=== PATIENT | female | born 1960 | race Caucasian/White ===

== ENCOUNTER → 2018-07-14 11:16 | Outpatient (CLI) | payer SELFPAY | PROVIDERS: PCP Family Medicine; Visit Provider Family Medicine | DX: R19.7 Diarrhea, unspecified (principal) ==

== ENCOUNTER → 2018-07-23 13:57 | Outpatient (CLI) | payer SELFPAY ==
[2018-07-23 15:08] LABS: Clostridium Difficile Tox PCR Negative for C. diff
== END ==
PROVIDERS: PCP Family Medicine; Visit Provider Family Medicine
DX: R19.7 Diarrhea, unspecified (principal)
CPT/HCPCS: 87493

== ENCOUNTER → 2018-08-06 14:34 | Outpatient (CLI) | payer SELFPAY ==
[2018-08-06 17:01] LABS: Thyroid Stimulating Hormone 0.23 uIU/mL (0.47-4.68)
== END ==
PROVIDERS: PCP Family Medicine; Visit Provider Registered Nurse
DX: F41.9 Anxiety disorder, unspecified (principal)
CPT/HCPCS: 36415; 84443

== ENCOUNTER 2018-10-28 15:19 | Emergency (ER) | payer SELFPAY ==
[2018-10-28 15:21] VITALS: BP 119/80; PULSE 74; RESP 15; TEMP 36.9; O2SAT 98; BMI 24.7
--- NOTE | 2018-10-28 15:26 | DI.RAD.S_ITS ---
PROCEDURE: XR CHEST 1V INDICATIONS: chest pain TECHNIQUE: One view of the chest was acquired. COMPARISON: None. FINDINGS: Surgical changes and devices: None. Lungs and pleura: Lungs are clear. No pleural effusions or pneumothorax. Mediastinum: Mediastinal contours appear normal. Heart size is normal. Bones and chest wall: No suspicious bony lesions. Overlying soft tissues appear unremarkable. IMPRESSION: Normal for age, source of current chest pain symptoms is not seen. Dictated by: Miguel Arce M.D. on 10/28/2018 at 15:45 Approved by: Miguel Arce M.D. on 10/28/2018 at 16:00
--- NOTE | 2018-10-28 15:50 | ED_ITS ---
HPI - Chest Pain <Ursula Fry DO - Last Filed: 10/31/18 18:34> General Chief Complaint: Chest Pain Stated Complaint: NEEDS TO BE SEEN FOR HEART Time Seen by Provider: 10/28/18 15:34 Source: patient Mode of arrival: ambulatory Limitations: no limitations History of Present Illness HPI narrative: Patient is a 58-year-old female who presents with left-sided chest pain. She says been ongoing for last 2-3 weeks it comes intermittently sharp stabbing on the same place every time it lasts for about 10-15 seconds. It makes her extremely short of breath. She denies any injury. She can't reproduce it with arm movement or deep breathing. She has no chest pain now. It comes both at rest and with exertion. Today was happening multiple times. She was seen evaluated by her PCP who recommended she come to the ED for further evaluation. She has also been experiencing some fatigue. MD complaint: chest pain Duration: now resolved Onset: during rest and during exertion Pain location: left chest Severity: severe Related Data Home Medications Medication Instructions Recorded Confirmed diphenhydramine HCl [Sleep Aid 50 mg PO BEDTIME 10/28/18 10/28/18 (diphenhydramine)] omeprazole 20 - 40 mg PO DAILY PRN 10/28/18 10/28/18 oxycodone-acetaminophen [Percocet] 1 tab PO PRN PRN 10/28/18 10/28/18 trazodone 100 mg PO BEDTIME 10/28/18 10/28/18 Previous Rx's Medication Instructions Recorded cyclobenzaprine 10 mg PO TIDP PRN #60 tab 07/20/17 sumatriptan succinate [Imitrex] 100 mg PO SEE INSTRUCTIONS #9 tab 04/06/18 furosemide 40 mg tablet 40 mg PO DAILY #30 tab 07/29/18 levothyroxine 88 mcg capsule 88 mcg PO DAILY #90 cap 08/08/18 tramadol 50 mg tablet 50 mg PO Q6HP PRN #60 tab 10/22/18 Allergies Allergy/AdvReac Type Severity Reaction Status Date / Time adhesive Allergy Mild ALLERGIC Verified 10/28/18 15:21 TO TAPE Review of Systems <DO Divya Montesinos Last Filed: 10/31/18 18:34> Review of Systems ROS Unobtainable: All systems reviewed & are unremarkable except as noted in HPI and below Constitutional Denies chills, Denies fever(s), Denies lethargy and Denies weakness ENT Ears, Nose, Mouth, and Throat: Denies change in voice, Denies neck pain and Denies sore throat Cardiovascular Reports as per HPI, Denies dyspnea and Denies dyspnea on exertion Respiratory Denies cough, Denies dyspnea, Denies dyspnea on exertion and Denies wheezing Gastrointestinal Gastrointestinal: Denies abdominal pain, Denies change in bowel habits, Denies diarrhea, Denies nausea and Denies vomiting Musculoskeletal Denies neck pain Integumentary/Breasts Denies pruritus, Denies erythema, Denies rash and Denies wounds Neurologic Denies weakness Allergic/Immunologic Denies wheezing PFSH <Ursula Fry DO - Last Filed: 10/31/18 18:34> Surgical History Status post delivery Status post hysterectomy with oophorectomy Status post laparotomy Social History marital status: Smoking Status: Former smoker alcohol intake: never substance use type: does not use Social History marital status: Smoking Status: Former smoker alcohol intake: never substance use type: does not use Exam <Ursula Fry DO - Last Filed: 10/31/18 18:34> Initial Vital Signs Initial Vital Signs: Vital Signs Temperature 98.5 F 10/28/18 15:21 Pulse Rate 74 10/28/18 15:21 Respiratory Rate 15 10/28/18 15:21 Blood Pressure 119/80 10/28/18 15:21 Pulse Oximetry 98 10/28/18 15:21 GENERAL: Well-appearing, well-nourished and in no acute distress. HEENT: Head atraumatic,EOMI, pupils reactive, face symmetric CARDIOVASCULAR: Regular rate and rhythm without murmurs, rubs or gallops. Pain and not reproducible with palpation RESPIRATORY: Breath sounds equal bilaterally, no wheezes rales or rhonchi. ABDOMEN: Soft, nontender. Normoactive bowel sounds all 4 quadrants. No guarding or rebound. EXTREMITIES: Normal range of motion, no clubbing or edema. Neurovascularly intact NEUROLOGICAL: Alert and oriented x4.Normal gait and speech. Cranial nerves II through XII grossly intact. SKIN: Warm, dry, no laceration, no petechiae, no rashes or lesions. <Tucker Fernandez DO - Last Filed: 10/28/18 19:30> Initial Vital Signs Initial Vital Signs: Vital Signs Temperature 98.5 F 10/28/18 15:21 Pulse Rate 74 10/28/18 15:21 Respiratory Rate 15 10/28/18 15:21 Blood Pressure 119/80 10/28/18 15:21 Pulse Oximetry 98 10/28/18 15:21 Scores <Ursula Fry DO - Last Filed: 10/31/18 18:34> HEART Score Heart Score history: Slightly Suspicious Heart Score EKG: Normal Heart Score Age: 45-64 years old Heart Score risk factors: No known risk factors Heart Score troponin: < or = to normal limit Heart Score Total: 1 PERC Score Age greater than or equal to 50 years: Yes Heart rate greater than or equal to 100 bpm: No Room Air O2 Sat less than 95%: No Unilateral leg swelling: No Recent trauma or surgery: No Hemoptysis: No Prior PE or DVT: No Hormone Use: No Total PERC Score: 1 Wells' Criteria for PE Clinical signs and symptoms of PE: Yes PE is #1 Dx or equally likely: No Heart rate > 100: No Immobilization at least 3 days or surg in previous 4 weeks: No History of PE or DVT: No Hemoptysis: No Malignancy w/Treatment within 6 months or palliative: No Wells' PE Score total: 3 Course <Ursula Fry DO - Last Filed: 10/31/18 18:34> Orders Ordered: ED Orders 10/28/18 15:26 XR chest 1V Stat EKG-12 Lead Stat 10/28/18 16:23 B Type Natriuretic Peptide Stat Complete Blood Count AUTO DIFF Stat Comprehensive Metabolic Panel Stat D Dimer Stat Lipase Stat Partial Thromboplastin Time Stat Prothrombin Time INR Stat Troponin & CK Cardiac Panel Stat 10/28/18 18:40 Troponin I Stat Vital Signs - 8 hr 10/28/18 15:21 10/28/18 16:21 10/28/18 17:30 Temperature 98.5 F Pulse Rate 74 74 71 Respiratory Rate 15 12 14 Blood Pressure 119/80 Blood Pressure [Left Arm] 128/77 131/75 Pulse Oximetry 98 100 97 10/28/18 18:00 10/28/18 18:30 Temperature Pulse Rate 70 68 Respiratory Rate 14 14 Blood Pressure Blood Pressure [Left Arm] 130/76 117/75 Pulse Oximetry 96 98 <Tucker Fernandez DO - Last Filed: 10/28/18 19:30> Orders Ordered: ED Orders 10/28/18 15:26 XR chest 1V Stat EKG-12 Lead Stat 10/28/18 16:23 B Type Natriuretic Peptide Stat Complete Blood Count AUTO DIFF Stat Comprehensive Metabolic Panel Stat D Dimer Stat Lipase Stat Partial Thromboplastin Time Stat Prothrombin Time INR Stat Troponin & CK Cardiac Panel Stat 10/28/18 18:40 Troponin I Stat Vital Signs - 8 hr 10/28/18 15:21 10/28/18 16:21 10/28/18 17:30 Temperature 98.5 F Pulse Rate 74 74 71 Respiratory Rate 15 12 14 Blood Pressure 119/80 Blood Pressure [Left Arm] 128/77 131/75 Pulse Oximetry 98 100 97 10/28/18 18:00 10/28/18 18:30 Temperature Pulse Rate 70 68 Respiratory Rate 14 14 Blood Pressure Blood Pressure [Left Arm] 130/76 117/75 Pulse Oximetry 96 98 MDM - Chest Pain <Ursula Fry DO - Last Filed: 10/31/18 18:34> Lab Data Attestation: I reviewed the patient's lab results. Result diagrams: 10/28/18 16:23 10/28/18 16:23 Lab Results 10/28/18 10/28/18 10/28/18 Range/Units 16:23 16:23 16:23 WBC 4.0 L (4.5-11.0) X10^3/uL RBC 4.55 (4.0-5.2) X10^6/uL Hgb 13.9 (12.0-16.0) g/dL Hct 42.0 (36-46) % MCV 92.4 (80-100) fL MCH 30.5 (26-34) PG MCHC 33.0 (30-36) % RDW 12.3 (11.6-14.8) % Plt Count 150 (150-400) X10^3/uL Neut % (Auto) 49.4 L (50-75) % Lymph % (Auto) 37.6 (25-40) % Adams % (Auto) 11.8 (3-14) % Eos % (Auto) 0.9 L (2-4) % Baso % (Auto) 0.3 (0-2) % Neut # (Auto) 2000 (9222-5246) /uL Lymph # (Auto) 1500 (3346-5843) /uL Adams # (Auto) 500 (0-900) /uL Eos # (Auto) 0 (0-450) /uL Baso # (Auto) 0 (0-100) /uL PT 10.9 (10.1-12.7) SECONDS INR 0.9 (0.9-1.3) APTT 29 (26.4-36.2) SECONDS D-Dimer (<230) ng/mL Sodium 140 (137-145) mmol/L Potassium 3.7 (3.4-5.1) mmol/L Chloride 104 (98-107) mmol/L Carbon Dioxide 27 (22-32) mmol/L BUN 13 (7-17) mg/dL Creatinine 0.70 (0.52-1.04) mg/dL Estimated GFR > 60.0 (>60) mL/min BUN/Creatinine Ratio 18.6 (6-22) Glucose 84 (70-100) mg/dL Calcium 9.1 (8.4-10.2) mg/dL Total Bilirubin 0.4 (0.2-1.3) mg/dL AST 27 (14-36) IU/L ALT 20 (9-52) IU/L Alkaline Phosphatase 59 (38-126) U/L Total Creatine Kinase 48 (30-135) U/L CK-MB (CK-2) TNP CK-MB (CK-2) Rel Index TNP Troponin I < 0.012 (0.01-0.034) ng/mL B-Natriuretic Peptide (<100) Total Protein 7.4 (6.3-8.2) g/dL Albumin 4.6 (3.5-5.0) g/dL Globulin 2.8 (1.7-4.1) g/dL Albumin/Globulin Ratio 1.6 (1.0-2.8) Lipase 82 (23-300) U/L 10/28/18 10/28/18 10/28/18 Range/Units 16:23 16:23 18:40 WBC (4.5-11.0) X10^3/uL RBC (4.0-5.2) X10^6/uL Hgb (12.0-16.0) g/dL Hct (36-46) % MCV (80-100) fL MCH (26-34) PG MCHC (30-36) % RDW (11.6-14.8) % Plt Count (150-400) X10^3/uL Neut % (Auto) (50-75) % Lymph % (Auto) (25-40) % Adams % (Auto) (3-14) % Eos % (Auto) (2-4) % Baso % (Auto) (0-2) % Neut # (Auto) (8685-3924) /uL Lymph # (Auto) (3449-0074) /uL Adams # (Auto) (0-900) /uL Eos # (Auto) (0-450) /uL Baso # (Auto) (0-100) /uL PT (10.1-12.7) SECONDS INR (0.9-1.3) APTT (26.4-36.2) SECONDS D-Dimer < 200 (<230) ng/mL Sodium (137-145) mmol/L Potassium (3.4-5.1) mmol/L Chloride (98-107) mmol/L Carbon Dioxide (22-32) mmol/L BUN (7-17) mg/dL Creatinine (0.52-1.04) mg/dL Estimated GFR (>60) mL/min BUN/Creatinine Ratio (6-22) Glucose (70-100) mg/dL Calcium (8.4-10.2) mg/dL Total Bilirubin (0.2-1.3) mg/dL AST (14-36) IU/L ALT (9-52) IU/L Alkaline Phosphatase (38-126) U/L Total Creatine Kinase (30-135) U/L CK-MB (CK-2) CK-MB (CK-2) Rel Index Troponin I < 0.012 (0.01-0.034) ng/mL B-Natriuretic Peptide < 100 (<100) Total Protein (6.3-8.2) g/dL Albumin (3.5-5.0) g/dL Globulin (1.7-4.1) g/dL Albumin/Globulin Ratio (1.0-2.8) Lipase (23-300) U/L Imaging Data Chest x-ray: Radiologist's impression: PROCEDURE: XR CHEST 1V INDICATIONS: chest pain TECHNIQUE: One view of the chest was acquired. COMPARISON: None. FINDINGS: Surgical changes and devices: None. Lungs and pleura: Lungs are clear. No pleural effusions or pneumothorax. Mediastinum: Mediastinal contours appear normal. Heart size is normal. Bones and chest wall: No suspicious bony lesions. Overlying soft tissues appear unremarkable. IMPRESSION: Normal for age, source of current chest pain symptoms is not seen. Dictated by: Miguel Arce M.D. on 10/28/2018 at 15:45 Approved by: Miguel Arce M.D. on 10/28/2018 at 16:00 ECG Data Attestation: I personally reviewed and interpreted this ECG as follows: Prior ECG tracings: available for review Interpretation: Normal sinus rhythm she does have slight inversion in lead 3 only no other congruent leads this was present previously and EKG 2011. No ST elevations. MDM Narrative Medical decision making narrative: I have discussed at length with patient and . She has been having shortness of breath ongoing for months. That is not any worse today she has always does not sound like cardiac pain 10 knee. I discussed with her PCP about outpatient workup with stress test and echocardiogram which she agrees to. Patient is low risk for PE and has a negative D-dimer. At this time she is chest pain free. I have signed the patient out to Dr. Fernandez with anticipation of going home. <Tucker Fernandez, DO - Last Filed: 10/28/18 19:30> Lab Data Attestation: I reviewed the patient's lab results. Lab Results 10/28/18 10/28/18 10/28/18 Range/Units 16:23 16:23 16:23 WBC 4.0 L (4.5-11.0) X10^3/uL RBC 4.55 (4.0-5.2) X10^6/uL Hgb 13.9 (12.0-16.0) g/dL Hct 42.0 (36-46) % MCV 92.4 (80-100) fL MCH 30.5 (26-34) PG MCHC 33.0 (30-36) % RDW 12.3 (11.6-14.8) % Plt Count 150 (150-400) X10^3/uL Neut % (Auto) 49.4 L (50-75) % Lymph % (Auto) 37.6 (25-40) % Adams % (Auto) 11.8 (3-14) % Eos % (Auto) 0.9 L (2-4) % Baso % (Auto) 0.3 (0-2) % Neut # (Auto) 2000 (4148-8143) /uL Lymph # (Auto) 1500 (9212-7113) /uL Adams # (Auto) 500 (0-900) /uL Eos # (Auto) 0 (0-450) /uL Baso # (Auto) 0 (0-100) /uL PT 10.9 (10.1-12.7) SECONDS INR 0.9 (0.9-1.3) APTT 29 (26.4-36.2) SECONDS D-Dimer (<230) ng/mL Sodium 140 (137-145) mmol/L Potassium 3.7 (3.4-5.1) mmol/L Chloride 104 (98-107) mmol/L Carbon Dioxide 27 (22-32) mmol/L BUN 13 (7-17) mg/dL Creatinine 0.70 (0.52-1.04) mg/dL Estimated GFR > 60.0 (>60) mL/min BUN/Creatinine Ratio 18.6 (6-22) Glucose 84 (70-100) mg/dL Calcium 9.1 (8.4-10.2) mg/dL Total Bilirubin 0.4 (0.2-1.3) mg/dL AST 27 (14-36) IU/L ALT 20 (9-52) IU/L Alkaline Phosphatase 59 (38-126) U/L Total Creatine Kinase 48 (30-135) U/L CK-MB (CK-2) TNP CK-MB (CK-2) Rel Index TNP Troponin I < 0.012 (0.01-0.034) ng/mL B-Natriuretic Peptide (<100) Total Protein 7.4 (6.3-8.2) g/dL Albumin 4.6 (3.5-5.0) g/dL Globulin 2.8 (1.7-4.1) g/dL Albumin/Globulin Ratio 1.6 (1.0-2.8) Lipase 82 (23-300) U/L 10/28/18 10/28/18 10/28/18 Range/Units 16:23 16:23 18:40 WBC (4.5-11.0) X10^3/uL RBC (4.0-5.2) X10^6/uL Hgb (12.0-16.0) g/dL Hct (36-46) % MCV (80-100) fL MCH (26-34) PG MCHC (30-36) % RDW (11.6-14.8) % Plt Count (150-400) X10^3/uL Neut % (Auto) (50-75) % Lymph % (Auto) (25-40) % Adams % (Auto) (3-14) % Eos % (Auto) (2-4) % Baso % (Auto) (0-2) % Neut # (Auto) (6018-8473) /uL Lymph # (Auto) (5755-6897) /uL Adams # (Auto) (0-900) /uL Eos # (Auto) (0-450) /uL Baso # (Auto) (0-100) /uL PT (10.1-12.7) SECONDS INR (0.9-1.3) APTT (26.4-36.2) SECONDS D-Dimer < 200 (<230) ng/mL Sodium (137-145) mmol/L Potassium (3.4-5.1) mmol/L Chloride (98-107) mmol/L Carbon Dioxide (22-32) mmol/L BUN (7-17) mg/dL Creatinine (0.52-1.04) mg/dL Estimated GFR (>60) mL/min BUN/Creatinine Ratio (6-22) Glucose (70-100) mg/dL Calcium (8.4-10.2) mg/dL Total Bilirubin (0.2-1.3) mg/dL AST (14-36) IU/L ALT (9-52) IU/L Alkaline Phosphatase (38-126) U/L Total Creatine Kinase (30-135) U/L CK-MB (CK-2) CK-MB (CK-2) Rel Index Troponin I < 0.012 (0.01-0.034) ng/mL B-Natriuretic Peptide < 100 (<100) Total Protein (6.3-8.2) g/dL Albumin (3.5-5.0) g/dL Globulin (1.7-4.1) g/dL Albumin/Globulin Ratio (1.0-2.8) Lipase (23-300) U/L ECG Data Attestation: I personally reviewed and interpreted this ECG as follows: Prior ECG tracings: not available for review Interpretation: Repeat EKG Sinus rhythm Ventricular rate is 69 Normal as needed oval Normal QRS Normal QTC Unchanged from prior EKG MDM Narrative Medical decision making narrative: Received turned over from day provider. I reviewed patient's history and physical. Perform my own history and physical exam. Reviewed patient's labs and EKG. First troponin was negative. Second troponin negative. Repeat EKG unchanged. Had a discussion with the patient regarding her symptoms and also her labs. Plan will be is to have the patient follow up with Dr. Sy for an outpatient stress test. Patient was given return precautions and follow-up instructions. Both her and her expressed understanding agreement this plan. Discharge Plan Departure Patient Disposition: Home Clinical Impression: Atypical chest pain Discharge Date/Time: 10/28/18 19:38 Interventions: ED Discharge Assessment Last Done: 10/28/18 19:37 Instructions: DI for Atypical Chest Pain Activity Restrictions/Additional Instructions: *You have been diagnosed with atypical chest *What to do: At this time he still need further workup of her heart but you do not need to stay in the hospital. Dr. Sy is already aware and has started at the process in order to do so. *Continue to take medications as directed Aspirin 81 mg once daily *Follow up with your primary care provider in 2-3 days *Return to ER if you should have increasing chest pain, shortness of breath, change in pain or breathing or any new, worsening or concerning symptoms Prescriptions: No Action cyclobenzaprine 10 MG tablet 10 mg PO TIDP PRNQty: 60 RF: 0 sumatriptan succinate [Imitrex] 100 mg tablet 100 mg PO SEE INSTRUCTIONS Qty: 9 RF: 5 furosemide 40 mg tablet 40 mg PO DAILY Qty: 30 RF: 0 levothyroxine 88 mcg capsule 88 mcg PO DAILY Qty: 90 RF: 0 tramadol 50 mg tablet 50 mg PO Q6HP PRN (Reason: pain) Qty: 60 RF: 0 diphenhydramine HCl [Sleep Aid (diphenhydramine)] 25 mg Capsule 50 mg PO BEDTIME RF: 0 oxycodone-acetaminophen [Percocet] 5-325 mg tablet 1 tab PO PRN PRN (Reason: Migraine Headache) RF: 0 trazodone 100 mg tablet 100 mg PO BEDTIME RF: 0 omeprazole 20 MG capsule,delayed release(DR/EC) 20 - 40 mg PO DAILY PRN (Reason: Acid Reflux) RF: 0 Referrals: Chris Sy MD [Primary Care Provider] -
[2018-10-28 16:21] VITALS: BP 128/77; PULSE 74; RESP 12; O2SAT 100
[2018-10-28 16:37] LABS: Add Manual Diff / Slide Review NO; Basophils Absolute Auto 0 /uL (0-100); Basophils Percent Auto 0.3 % (0-2); Eosinophils Absolute Auto 0 /uL (0-450); Eosinophils Percent Auto 0.9 % (2-4); Hemoglobin 13.9 g/dL (12.0-16.0); Lymphocytes Absolute Auto 1500 /uL (1100-4500); Lymphocytes Percent Auto 37.6 % (25-40); Mean Corpuscular Hemoglobin 30.5 PG (26-34); Mean Corpuscular Volume 92.4 fL (80-100); Monocytes Absolute Auto 500 /uL (0-900); Monocytes Percent Auto 11.8 % (3-14); Neutrophils Absolute Auto 2000 /uL (1500-7000); Neutrophils Percent Auto 49.4 % (50-75); Platelet Count 150 X10^3/uL (150-400); Red Blood Cell Count 4.55 X10^6/uL (4.0-5.2); Red Cell Distribution Width 12.3 % (11.6-14.8)
[2018-10-28 16:49] LABS: INR 0.9 (0.9-1.3); Prothrombin Time 10.9 SECONDS (10.1-12.7)
[2018-10-28 16:51] LABS: PTT Partial Thromboplastin Tim 29 SECONDS (26.4-36.2)
[2018-10-28 16:53] LABS: Alanine Aminotransferase 20 IU/L (9-52); Albumin 4.6 g/dL (3.5-5.0); Albumin Globulin Ratio 1.6 (1.0-2.8); Alkaline Phosphatase 59 U/L (38-126); Aspartate Aminotransferase 27 IU/L (14-36); BUN Creatinine Ratio 18.6 (6-22); Bilirubin Total 0.4 mg/dL (0.2-1.3); Blood Urea Nitrogen 13 mg/dL (7-17); Calcium 9.1 mg/dL (8.4-10.2); Carbon Dioxide 27 mmol/L (22-32); Chloride 104 mmol/L (98-107); Creatine Kinase 48 U/L (30-135); Estimated Glomerular Filt Rate > 60.0 mL/min (>60); Globulin 2.8 g/dL (1.7-4.1); Glucose 84 mg/dL (70-100); HEMOLYSIS < 15 (0-50); Lipase 82 U/L (23-300); Potassium 3.7 mmol/L (3.4-5.1); Sodium 140 mmol/L (137-145); Total Protein 7.4 g/dL (6.3-8.2)
[2018-10-28 17:04] LABS: Troponin I < 0.012 ng/mL (0.01-0.034)
[2018-10-28 17:30] VITALS: BP 131/75; PULSE 71; RESP 14; O2SAT 97
[2018-10-28 18:00] VITALS: BP 130/76; PULSE 70; RESP 14; O2SAT 96
[2018-10-28 18:02] LABS: D Dimer < 200 ng/mL (<230)
[2018-10-28 18:07] LABS: B Type Natriuretic Peptide < 100 (<100)
[2018-10-28 18:30] VITALS: BP 117/75; PULSE 68; RESP 14; O2SAT 98
[2018-10-28 19:08] LABS: Troponin I < 0.012 ng/mL (0.01-0.034)
== END 2018-10-28 19:38 | disposition home or self-care (01) ==
PROVIDERS: Emergency Medicine; Emergency Provider Emergency Medicine; Family Provider Family Medicine; PCP Family Medicine
DX: R07.89 Other chest pain (principal); R53.83 Other fatigue; R06.02 Shortness of breath
CPT/HCPCS: 36591; 71045; 80053; 82550; 83690; 83880; 84484; 85025; 85379; 85610; 85730; 93005; 93010; 99283; 99285

== ENCOUNTER → 2019-03-02 14:44 | Outpatient (CLI) | payer SELFPAY ==
[2019-03-02 15:27] LABS: D Dimer < 200 ng/mL (<230)
== END ==
PROVIDERS: Family Provider Family Medicine; PCP Family Medicine; Visit Provider Family Medicine
DX: R00.2 Palpitations (principal); R06.02 Shortness of breath
CPT/HCPCS: 36415; 85379

== ENCOUNTER → 2019-03-09 11:01 | Outpatient (CLI) | payer SELFPAY ==
--- NOTE | 2019-03-25 08:23 | PM.CARDMON.1 ---
Medical Record Librarian Report Referral & Results Date Patient Seen: 03/09/19 Requesting provider: Chris Sy Indication: Palpitations Duration of monitoring (days): 4 Diary information: There were 118 patient triggered events and 35 diarrhea events These events were associated with sinus rhythm, supraventricular ectopy, and ventricular ectopy Data: Minimum heart rate identified was 40 beats per minute at 05:19 on 03/11/2019 Maximum heart rate was 104 beats per minute at 11:19 on 03/10/2019 Less than 1% of identified beats or either ventricular supraventricular ectopic in origin There were no pauses identified Impression: A large percent of patients triggered or reported events were associated with sinus rhythm. However some of the triggers and or diarrhea recorded events were associated with either PVCs or PACs No serious dysrhythmia identified however
== END ==
PROVIDERS: PCP Family Medicine; Visit Provider Family Medicine
DX: R00.2 Palpitations (principal)
CPT/HCPCS: 0296T; 0298T

== ENCOUNTER → 2019-03-25 10:02 | Outpatient (CLI) | payer SELFPAY ==
[2019-03-25 16:14] LABS: Free T4, Direct Thyroxine 1.05 ng/dL (0.78-2.19)
== END ==
PROVIDERS: PCP Family Medicine; Visit Provider Family Medicine
DX: E03.9 Hypothyroidism, unspecified (principal)
CPT/HCPCS: 36415; 84439; 84443

== ENCOUNTER → 2019-06-06 11:11 | Outpatient (CLI) | payer SELFPAY ==
[2019-06-06 14:36] LABS: Free T4, Direct Thyroxine 1.91 ng/dL (0.78-2.19)
== END ==
PROVIDERS: PCP Family Medicine; Visit Provider Family Medicine
DX: E03.9 Hypothyroidism, unspecified (principal)
CPT/HCPCS: 36415; 84439; 84443

== ENCOUNTER → 2019-07-20 15:15 | Outpatient (CLI) | payer SELFPAY ==
[2019-07-20 19:08] LABS: Thyroid Stimulating Hormone 0.16 uIU/mL (0.47-4.68)
== END ==
PROVIDERS: Family Provider Family Medicine; PCP Family Medicine; Visit Provider Nurse Practitioner Family
DX: E03.9 Hypothyroidism, unspecified (principal)
CPT/HCPCS: 36415; 84443

== ENCOUNTER → 2019-12-08 10:05 | Outpatient (CLI) | payer SELFPAY ==
[2019-12-08 13:05] LABS: Thyroid Stimulating Hormone 8.88 uIU/mL (0.47-4.68)
== END ==
PROVIDERS: Family Provider Family Medicine; PCP Family Medicine; Referring Provider Family Medicine; Visit Provider Family Medicine
DX: E03.9 Hypothyroidism, unspecified (principal)
CPT/HCPCS: 36415; 84443

== ENCOUNTER → 2020-03-12 10:24 | Outpatient (CLI) | payer SELFPAY ==
[2020-03-12 11:44] LABS: Thyroid Stimulating Hormone 5.58 uIU/mL (0.47-4.68)
== END ==
PROVIDERS: Family Provider Family Medicine; PCP Family Medicine; Referring Provider Family Medicine; Visit Provider Family Medicine
DX: E03.9 Hypothyroidism, unspecified (principal)
CPT/HCPCS: 36415; 84443

== ENCOUNTER → 2020-06-25 13:40 | Outpatient (CLI) | payer SELFPAY ==
--- NOTE | 2020-06-25 | DI.MG.S_ITS ---
BILATERAL DIGITAL DIAGNOSTIC MAMMOGRAM 3D/2D: 06/25/2020 CLINICAL: Left breast pain. Comparison is made to exams dated: 08/20/2012 mammogram and 12/15/2008 mammogram - [facility]. The tissue of both breasts is heterogeneously dense. This may lower the sensitivity of mammography. No significant masses, calcifications, or other findings are seen in either breast. IMPRESSION: INCOMPLETE: NEEDS ADDITIONAL IMAGING EVALUATION There is no abnormality seen in the left breast to correspond with the area of clinical concern, palpable abnormality, and pain indicated by triangular marker in the middle depth in the upper inner quadrant. An ultrasound is recommended for further evaluation and is scheduled to immediately follow this examination. There is no abnormality seen in the left breast to correspond with the area of clinical concern and pain in the mid left breast radiating up to the left axilla . An ultrasound is recommended for further evaluation and is scheduled to immediately follow this examination. This exam was interpreted at Station ID: [id number]. NOTE: For mammograms, a report in lay terms will be sent to the patient. Approximately 15% of breast malignancies will not be visualized mammographically. In the management of a palpable breast mass, a negative mammogram must not discourage biopsy of a clinically suspicious lesion. Electronically Signed By: Janusz Turner M.D. aty/:06/25/2020 14:33:33 ACR BI-RADS Category 0: Incomplete 3340F
--- NOTE | 2020-06-25 13:46 | DI.US.S_ITS ---
ULTRASOUND OF LEFT BREAST: 06/25/2020 CLINICAL: Diffuse left breast pain and palpable lump. Comparison is made to exams dated: 06/25/2020 mammogram, 08/20/2012 mammogram, 08/20/2012, and 12/15/2008 mammogram - [facility]. Color flow and real-time ultrasound of the left breast were performed. Botello scale images of the real-time examination were reviewed. No significant abnormalities were seen sonographically in the left breast or left axilla. IMPRESSION: NEGATIVE There is no sonographic evidence of malignancy. There are no abnormalities seen in the left breast or in the left axilla to correspond with the areas of clinical concern, palpable abnormalities, and pain at 2, 5, 10 o'clock, and in the left axilla, however, recommend clinical follow up for persistent or worsening symptoms, or development of any clinically suspicious findings. A 1 year screening mammogram is recommended. Findings and recommendations were conveyed to the patient during today's evaluation. This exam was interpreted at Station ID: [id number]. Electronically Signed By: Janusz Turner M.D. at/:06/25/2020 16:24:26 letter sent: Clinical Evaluation Ultrasound BI-RADS: 1 Negative
== END ==
PROVIDERS: Family Provider Family Medicine; PCP Family Medicine; Referring Provider Family Medicine; Visit Provider Family Medicine
DX: R92.8 Other abnormal and inconclusive findings on diagnostic imaging of breast (principal); N63.20 Unspecified lump in the left breast, unspecified quadrant; N64.4 Mastodynia
CPT/HCPCS: 76642; 77066; G0279

== ENCOUNTER → 2020-06-28 15:08 | Outpatient (CLI) | payer SELFPAY ==
[2020-06-28 16:47] LABS: Thyroid Stimulating Hormone 0.023 uIU/mL (0.47-4.68)
== END ==
LOC: LAB 15:09
PROVIDERS: Family Provider Family Medicine; PCP Family Medicine; Referring Provider Family Medicine; Visit Provider Family Medicine
DX: E03.9 Hypothyroidism, unspecified (principal)
CPT/HCPCS: 36415; 84443

== ENCOUNTER → 2020-12-17 15:23 | Outpatient (CLI) | payer SELFPAY ==
[2020-12-17 17:00] LABS: Thyroid Stimulating Hormone 0.262 uIU/mL (0.47-4.68)
== END ==
PROVIDERS: Family Provider Family Medicine; PCP Family Medicine; Referring Provider Family Medicine; Visit Provider Family Medicine
DX: E03.9 Hypothyroidism, unspecified (principal)
CPT/HCPCS: 36415; 84443

== ENCOUNTER 2021-09-17 19:05 | Emergency (ER) | payer SELFPAY ==
[2021-09-17 19:09] VITALS: BP 120/76; PULSE 74; RESP 18; TEMP 36.8; O2SAT 97; BMI 25.2
--- NOTE | 2021-09-17 19:26 | DI.CT.S_ITS ---
PROCEDURE: CT ABDOMEN PELVIS W CON INDICATIONS: severe RUQ and lower abdominal pain, sent by Jess TECHNIQUE: After the administration of intravenous contrast, axial sections acquired from the lung bases to the pubic symphysis. Coronal and sagittal reformats were performed. For radiation dose reduction, the following was used: automated exposure control, adjustment of mA and/or kV according to patient size. COMPARISON: [facility], CT, CT ANGIO CHEST ABDOMEN, 03/12/2019, 16:38. FINDINGS: Image quality: Excellent. Lung bases: Unremarkable. Heart: No significant findings. ABDOMEN: Liver: Irregular hypoattenuating lesion at the posterior right hepatic dome with peripheral nodular discontinuous enhancement appears unchanged when compared to the CT from 03/12/2019, again most likely representing a benign hemangioma. No additional liver lesion is seen. Gallbladder: Mildly contracted but otherwise unremarkable. No pericholecystic inflammatory changes. Biliary ducts: Unremarkable. Pancreas: Annular pancreas is noted with mild narrowing at the junction of the 1st and 2nd portions of the duodenum, a congenital variant. Spleen: Unremarkable. Adrenal Glands: Unremarkable. Kidneys and Ureters: Unremarkable. Stomach and Bowel: Stomach is mildly distended. The pylorus area pill is somewhat hypertrophied. There is narrowing of the duodenum at the junction of the 1st and 2nd portion, where there is an annular pancreas noted. Bowel wall thickening is seen in the transverse colon as well as the descending and sigmoid colon that may be related to underdistention, but is suspicious for a mild colitis. Surgical clips at the cecal tip are most likely secondary to a prior appendectomy. Peritoneum: No abnormal intraperitoneal fluid. No free air. Ventral Wall: No hernias. Abdominal Nodes: No retroperitoneal or mesenteric adenopathy by size criteria. Vessels: Aorta and inferior vena cava are normal in size. PELVIS: Pelvic Organs: Suspected prior supracervical hysterectomy. Bladder: Unremarkable. Pelvic Nodes: No enlarged lymph nodes. Miscellaneous: No hernias are seen. Bones: Trace scoliotic curvature is seen in the spine. Mild multilevel degenerative changes. IMPRESSION: 1. Mild bowel wall thickening in the transverse colon as well as in the descending and sigmoid colon could be related to underdistention, but is suspicious for a mild nonspecific colitis. 2. 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 Stomach is mildly distended. No signs of high-grade obstruction. 3. Stable right liver dome hemangioma. Dictated by: Angel Diamond M.D. on 09/17/2021 at 20:22 Approved by: Angel Diamond M.D. on 09/17/2021 at 20:31
[2021-09-17 19:30] LABS: Add Manual Diff / Slide Review NO; Basophils Absolute Auto 0 /uL (0-100); Basophils Percent Auto 0.5 % (0-2); Eosinophils Absolute Auto 100 /uL (0-450); Eosinophils Percent Auto 1.2 % (2-4); Hematocrit 39.3 % (36-46); Lymphocytes Absolute Auto 1900 /uL (1100-4500); Lymphocytes Percent Auto 43.6 % (25-40); Mean Corpuscular HGB Conc 33.1 % (30-36); Mean Corpuscular Hemoglobin 30.5 PG (26-34); Monocytes Absolute Auto 600 /uL (0-900); Monocytes Percent Auto 13.7 % (3-14); Neutrophils Absolute Auto 1800 /uL (1500-7000); Platelet Count 162 X10^3/uL (150-400); Red Blood Cell Count 4.27 X10^6/uL (4.0-5.2); Red Cell Distribution Width 12.3 % (11.6-14.8); White Blood Cell Count 4.4 X10^3/uL (4.5-11.0)
[2021-09-17 19:38] LABS: Prothrombin Time 11.3 SECONDS (10.1-12.7)
[2021-09-17 19:41] LABS: PTT Partial Thromboplastin Tim 34 SECONDS (26.4-36.2)
[2021-09-17 19:48] LABS: Alanine Aminotransferase 15 IU/L (<35); Albumin 4.4 g/dL (3.5-5.0); Albumin Globulin Ratio 1.5 (1.0-2.8); Alkaline Phosphatase 52 U/L (38-126); Aspartate Aminotransferase 28 IU/L (14-36); BUN Creatinine Ratio 18.9 (6-22); Bilirubin Total 0.4 mg/dL (0.2-1.3); Blood Urea Nitrogen 14 mg/dL (7-17); Calcium 9.1 mg/dL (8.4-10.2); Carbon Dioxide 29 mmol/L (22-32); Chloride 104 mmol/L (98-107); Estimated Glomerular Filt Rate > 60.0 mL/min (>60); Globulin 2.9 g/dL (1.7-4.1); Glucose 103 mg/dL (70-100); HEMOLYSIS 17 (0-50); Lipase 120 U/L (23-300); Potassium 3.9 mmol/L (3.4-5.1); Sodium 139 mmol/L (137-145); Total Protein 7.3 g/dL (6.3-8.2)
--- NOTE | 2021-09-17 22:01 | ED_ITS ---
HPI - Abdominal Pain General Chief Complaint: Abdominal Pain Stated Complaint: GALLBLADDER PAIN Time Seen by Provider: 09/17/21 19:21 History of Present Illness HPI narrative: 61-year-old female former smoker with history of IBS, incisional hernias and gallbladder disease presents with her and a chief complaint of ongoing abdominal pain. She states that she has pain in her upper abdomen and right upper quadrant that is consistent with prior gallbladder episodes. She has been referred to [facility] but is yet to have significant findings on imaging or labs to suggest surgeries indicated. She also has some lower abdominal pain that is consistent with prior episodes of incisional hernia. She states that she still having bowel movements, passing gas and has not been vomiting. She has had no fever chills. All of her abdominal pain seems to be worsened by motion and improves with rest. She denies any dietary change, new medications or other. She has been putting contact with surgery as mentioned above, and encouraged to presents to the emergency department for evaluation of her symptoms worsen. Related Data Home Medications Medication Instructions Recorded Confirmed omeprazole 20 mg capsule,delayed 20 - 40 mg PO DAILY PRN 10/28/18 08/29/21 release Previous Rx's Medication Instructions Recorded sumatriptan succinate 100 mg See Rx Instructions .ROUTE 03/12/20 tablet (Imitrex) .COMPLEX #9 tab furosemide 40 mg tablet (Lasix) 40 mg PO DAILY PRN #30 tab 10/10/20 trazodone 100 mg tablet See Rx Instructions .ROUTE 03/28/21 .COMPLEX #30 tab tramadol 50 mg tablet See Rx Instructions .ROUTE 06/10/21 .COMPLEX #60 tab levothyroxine 100 mcg tablet See Rx Instructions .ROUTE 07/10/21 .COMPLEX #90 tablet Allergies Allergy/AdvReac Type Severity Reaction Status Date / Time adhesive Allergy Mild ALLERGIC Verified 08/29/21 14:31 TO TAPE Review of Systems Review of Systems Narrative: GENERAL: Denies chills, fatigue, malaise, fever, sweats. HEENT: Denies sinus pain, ear pain, sore throat, difficulty swallowing, dizziness. RESPIRATORY: Denies dyspnea, cough, wheezing, hemoptysis, sputum. CARDIOVASCULAR: Denies chest pain, palpitations, orthopnea, edema, GASTROINTESTINAL: See HPI : Denies dysuria, frequency, incontinence, hematuria, urinary retention. MUSCULOSKELETAL: denies weakness, joint pain, or bony pain SKIN: Denies rash, skin lesions, or other NEUROLOGIC: Denies weakness, headache, numbness, change in speech, confusion, seizures, incoordination. PSYCHIATRIC: No concerning psychosocial issues. 12 point review of systems is negative except for those stated above Patient History Medical History Chest pain PVC (premature ventricular contraction) Surgical History Status post delivery Status post hysterectomy with oophorectomy Status post laparotomy Social History marital status: Smoking Status: Former smoker alcohol intake: never substance use type: does not use Smoking Status: Former smoker alcohol intake frequency: holidays/special occasions only Substance Use Type: does not use Exam Narrative Exam Narrative: GENERAL: [61] year old patient appears stated age. Well-developed patient, in mild distress. Tearful, clearly upset and uncomfortable HEAD: Atraumatic. Normocephalic. EYES: Pupils equal round and reactive. Extraocular motions intact. No scleral icterus. No injection or drainage. ENT: Nose without bleeding, purulent drainage. Throat without erythema, tonsillar hypertrophy or exudate. Airway patent. NECK: Trachea midline. Non tender CARDIOVASCULAR: Regular rate and rhythm without murmurs, gallops, or rubs. RESPIRATORY: Clear to auscultation. Breath sounds equal bilaterally. No wheezes, rales, or rhonchi. GASTROINTESTINAL: Abdomen soft, mild tenderness throughout, nondistended. Bowel sounds present throughout EXTREMITIES: No edema or joint tenderness. BACK: Nontender without deformity or crepitance. No flank tenderness. NEURO: AOx3. SKIN: No rash or erythema of visible areas Initial Vital Signs Initial Vital Signs: Vital Signs Temperature 98.2 F 09/17/21 19:09 Pulse Rate 74 09/17/21 19:09 Respiratory Rate 18 09/17/21 19:09 Blood Pressure 120/76 09/17/21 19:09 Pulse Oximetry 97 09/17/21 19:09 Course Orders Ordered: ED Orders 09/17/21 19:13 EKG-12 Lead Stat 09/17/21 19:20 Complete Blood Count AUTO DIFF Stat Comprehensive Metabolic Panel Stat Lipase Stat Partial Thromboplastin Time Stat Prothrombin Time INR Stat 09/17/21 19:26 CT abdomen pelvis w con Stat Consultations Consultation #1: Discussed with on-call General surgery (Dr. Mercado) who knows this patient. No further recommendations at this time, classic return precautions Vital Signs Vital signs: Vital Signs - 8 hr 09/17/21 19:09 Temperature 98.2 F Pulse Rate 74 Respiratory Rate 18 Blood Pressure 120/76 Pulse Oximetry 97 MDM - Abdominal Pain Lab Data Result diagrams: 09/17/21 19:20 09/17/21 19:20 Labs: Lab Results 09/17/21 09/17/21 09/17/21 Range/Units 19:20 19:20 19:20 WBC 4.4 L (4.5-11.0) X10^3/uL RBC 4.27 (4.0-5.2) X10^6/uL Hgb 13.0 (12.0-16.0) g/dL Hct 39.3 (36-46) % MCV 92.0 (80-100) fL MCH 30.5 (26-34) PG MCHC 33.1 (30-36) % RDW 12.3 (11.6-14.8) % Plt Count 162 (150-400) X10^3/uL Neut % (Auto) 41.0 L (50-75) % Lymph % (Auto) 43.6 H (25-40) % Ransom % (Auto) 13.7 (3-14) % Eos % (Auto) 1.2 L (2-4) % Baso % (Auto) 0.5 (0-2) % Neut # (Auto) 1800 (3064-5461) /uL Lymph # (Auto) 1900 (9144-0459) /uL Ransom # (Auto) 600 (0-900) /uL Eos # (Auto) 100 (0-450) /uL Baso # (Auto) 0 (0-100) /uL PT 11.3 (10.1-12.7) SECONDS INR 1.0 (0.9-1.3) APTT 34 D (26.4-36.2) SECONDS Sodium 139 (137-145) mmol/L Potassium 3.9 (3.4-5.1) mmol/L Chloride 104 (98-107) mmol/L Carbon Dioxide 29 (22-32) mmol/L BUN 14 (7-17) mg/dL Creatinine 0.74 (0.52-1.04) mg/dL Estimated GFR > 60.0 (>60) mL/min BUN/Creatinine Ratio 18.9 (6-22) Glucose 103 H (70-100) mg/dL Calcium 9.1 (8.4-10.2) mg/dL Total Bilirubin 0.4 (0.2-1.3) mg/dL AST 28 (14-36) IU/L ALT 15 (<35) IU/L Alkaline Phosphatase 52 (38-126) U/L Total Protein 7.3 (6.3-8.2) g/dL Albumin 4.4 (3.5-5.0) g/dL Globulin 2.9 (1.7-4.1) g/dL Albumin/Globulin Ratio 1.5 (1.0-2.8) Lipase 120 (23-300) U/L Imaging Data CT scan - abdomen/pelvis: Radiologist's Impression: Brittni Resendiz??61??F??1960 ? Allergy/Adv: adhesive Close Abdomen/Pelvis CT (Signed) Angel Diamond - 09/17/21 Breast Ultrasound (Signed) Janusz Turner - 06/25/20 Mammogram Diagnostic (Signed) Janusz Turner - 06/25/20 Chest X-Ray (Signed) Miguel Arce - 10/28/18 [place] [address] CT Scan Report Signed Patient: Brittni Resendiz MR#: [id number] : 1960 Acct:[id number] Age/Sex: 61 / F Date of Service: 09/17/21 Loc: ED Accession Number: [id number] ?? Procedure: CT abdomen pelvis w con Ordering Provider: Apolinar Medina D.O. PROCEDURE:? CT ABDOMEN PELVIS W CON ? INDICATIONS:? severe RUQ and lower abdominal pain, sent by Jess ? TECHNIQUE:? After the administration of intravenous contrast, axial sections acquired from the lung bases to the pubic symphysis.? Coronal and sagittal reformats were performed.? For radiation dose reduction, the following was used:? automated exposure control, adjustment of mA and/or kV according to patient size.? ? COMPARISON:? [facility], CT, CT ANGIO CHEST ABDOMEN, 03/12/2019, 16:38. ? FINDINGS:? Image quality:? Excellent.? ? Lung bases:? Unremarkable. Heart:? No significant findings. ? ABDOMEN: Liver:? Irregular hypoattenuating lesion at the posterior right hepatic dome with peripheral nodular discontinuous enhancement appears unchanged when compared to the CT from 03/12/2019, again most likely representing a benign hemangioma.? No additional liver lesion is seen. Gallbladder:? Mildly contracted but otherwise unremarkable.? No pericholecystic inflammatory changes. Biliary ducts:? Unremarkable.? ? Pancreas:? Annular pancreas is noted with mild narrowing at the junction of the 1st and 2nd portions of the duodenum, a congenital variant. Spleen:? Unremarkable.? ? Adrenal Glands:? Unremarkable.? ? Kidneys and Ureters:? Unremarkable.? ? ? Stomach and Bowel:? Stomach is mildly distended.? The pylorus area pill is somewhat hypertrophied.? There is narrowing of the duodenum at the junction of the 1st and 2nd portion, where there is an annular pancreas noted.? Bowel wall thickening is seen in the transverse colon as well as the descending and sigmoid colon that may be related to underdistention, but is suspicious for a mild colitis.? Surgical clips at the cecal tip are most likely secondary to a prior appendectomy. Peritoneum:? No abnormal intraperitoneal fluid.? No free air.? ? Ventral Wall: ? No hernias.? Abdominal Nodes:? No retroperitoneal or mesenteric adenopathy by size criteria.? Vessels:? Aorta and inferior vena cava are normal in size.? ? PELVIS: Pelvic Organs:? Suspected prior supracervical hysterectomy. Bladder:? Unremarkable.? ? Pelvic Nodes: No enlarged lymph nodes.? Miscellaneous: No hernias are seen. ? ? ? Bones:? Trace scoliotic curvature is seen in the spine.? Mild multilevel degenerative changes. ? ? IMPRESSION:? 1. Mild bowel wall thickening in the transverse colon as well as in the descending and sigmoid colon could be related to underdistention, but is suspicious for a mild nonspecific colitis. 2. 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 Stomach is mildly distended.? No signs of high-grade obstruction. 3. Stable right liver dome hemangioma. ? ? Dictated by: Angel Diamond M.D. on 09/17/2021 at 20:22 ? ? Approved by: Angel Diamond M.D. on 09/17/2021 at 20:31 ? [facility] Narrative Medical decision making narrative: Patient with ongoing abdominal pain that has been well evaluated thus far. History, physical exam, labs and imaging are very reassuring. There is no indication of an acute abdomen or need for surgical intervention. Her pain is controlled, she can tolerate orals. She was offered pain medications in the form of hydrocodone or an antispasmodic such as Levsin but she refused, stating she does not want to take medications to cover the problem. She is given extensive return precautions and questions have been answered to her apparent satisfaction Discharge Plan Departure Patient Disposition: Home Clinical Impression: Abdominal pain Instructions: DI for Abdominal Pain-Adult Activity Restrictions/Additional Instructions: *You have been diagnosed with [acute abdominal pain. Your history and physical exam are reassuring, labs and CT would suggest against the need for an emergent surgical intervention. As we discussed, I have discussed with Dr. Mercado, he is aware and recommends clear liquids and follow up as previously discussed *What to do: *Please continue to take your regular medications as directed. [ ] New medication prescriptions sent to your pharmacy: [ ] [ ] New medication written as a paper prescription [x ] No new medications given *Please follow up with your primary care provider in 2-3 days, call for an appointment. Let them know you were seen in the Emergency Department and that we ask that you be seen in follow up. We will electronically transmit a record of today's note if your PCP is in our system *If you do not have a primary care provider please contact the [facility] Resource line at [phone]. They will ask some questions about your medical history and help get you set up with a doctor in the community. *Return to Emergency Department if you should have any new, worsening or concerning symptoms, such as [fever greater than 101 F, shaking chills, w orsening pain, persistent vomiting or other bothersome symptoms] Prescriptions: No Action sumatriptan succinate [Imitrex] 100 mg tablet See Rx Instructions .ROUTE .COMPLEX Qty: 9 5RF Rx Instructions: take one tab for migraine. MR in 2 hours if needed. Max dose 200mg/24 hrs; furosemide [Lasix] 40 mg tablet 40 mg PO DAILY PRN (Reason: edema) Qty: 30 11RF trazodone 100 mg tablet See Rx Instructions .ROUTE .COMPLEX Qty: 30 5RF Dose Instruction: TAKE ONE TABLET BY MOUTH AT BEDTIME Rx Instructions: TAKE ONE TABLET BY MOUTH AT BEDTIME tramadol 50 mg tablet See Rx Instructions .ROUTE .COMPLEX Qty: 60 0RF Dose Instruction: TAKE ONE TABLET BY MOUTH EVERY 6 HOURS NEEDED FOR PAIN Rx Instructions: TAKE ONE TABLET BY MOUTH EVERY 6 HOURS NEEDED FOR PAIN levothyroxine 100 mcg tablet See Rx Instructions .ROUTE .COMPLEX Qty: 90 0RF Dose Instruction: TAKE ONE TABLET BY MOUTH EVERY MORNING Rx Instructions: TAKE ONE TABLET BY MOUTH EVERY MORNING omeprazole 20 MG capsule,delayed release(DR/EC) 20 - 40 mg PO DAILY PRN (Reason: Acid Reflux) 0RF Referrals: Chris Sy MD [Primary Care Provider] -
== END 2021-09-17 22:39 | disposition home or self-care (01) ==
PROVIDERS: Emergency Provider Emergency Medicine; Family Provider Family Medicine; PCP Family Medicine
DX: R10.84 Generalized abdominal pain (principal)
CPT/HCPCS: 74177; 80053; 83690; 85025; 85610; 85730; 93005; 99281; 99284; Q9967

== ENCOUNTER → 2022-02-24 13:47 | Outpatient (CLI) | payer OTHER, SELFPAY ==
--- NOTE | 2022-02-24 13:50 | DI.RAD.S_ITS ---
PROCEDURE: XR RIBS BI MIN 4V W CXR1V INDICATIONS: Rib pain after incident TECHNIQUE: Two views each of the left and right ribs were acquired, along with a single view chest. COMPARISON: [facility], , XR CHEST 1 VIEW, 01/03/2022, 19:15. FINDINGS: Surgical changes and devices: None. Bones and chest wall: No acute displaced rib fracture. No suspicious bony lesions. Overlying soft tissues appear unremarkable. Lungs and pleura: No pleural effusions or pneumothorax. Lungs appear clear. Mediastinum: Mediastinal contours appear normal. Heart size is normal. IMPRESSION: No acute displaced rib fracture. No pleural effusion or pneumothorax. Dictated by: Angel Diamond M.D. on 02/24/2022 at 16:25 Approved by: Angel Diamond M.D. on 02/24/2022 at 16:27
== END ==
PROVIDERS: Family Provider Family Medicine; PCP Family Medicine; Referring Provider Family Medicine; Visit Provider Family Medicine
DX: R07.81 Pleurodynia (principal)
CPT/HCPCS: 71111

== ENCOUNTER → 2022-04-16 11:38 | Outpatient (CLI) | payer OTHER, SELFPAY ==
--- NOTE | 2022-04-16 11:48 | DI.RAD.S_ITS ---
PROCEDURE: XR SHOULDER LT MIN 2V INDICATIONS: Increasing pain left shoulder; hx of fall 30 yrs ago TECHNIQUE: 3 views of the shoulder were acquired. COMPARISON: None. FINDINGS: Bones: No fractures or dislocations. [id number] acromioclavicular joint osteoarthritic changes are seen with joint space narrowing and subchondral sclerosis. No suspicious bony lesions. Visualized ribs appear intact. Soft tissues: No suspicious soft tissue calcifications. IMPRESSION: Mild to moderate acromioclavicular joint osteoarthritis. No fracture or dislocation. No gross soft tissue abnormalities. Dictated by: Hans Palmer M.D. on 04/16/2022 at 13:17 Approved by: Hans Palmer M.D. on 04/16/2022 at 13:17
== END ==
PROVIDERS: Family Provider Family Medicine; PCP Family Medicine; Referring Provider Physician Assistant; Visit Provider Physician Assistant
DX: G89.29 Other chronic pain (principal); M25.512 Pain in left shoulder; Z87.828 Personal history of other (healed) physical injury and trauma; M19.012 Primary osteoarthritis, left shoulder
CPT/HCPCS: 73030

== ENCOUNTER → 2022-08-06 09:54 | Outpatient (CLI) | payer OTHER, SELFPAY ==
[2022-08-06 11:17] LABS: TSH w/ Reflex to FT4 0.57 uIU/mL (0.47-4.68)
== END ==
PROVIDERS: Family Provider Family Medicine; PCP Family Medicine; Referring Provider Family Medicine; Visit Provider Family Medicine
DX: E03.9 Hypothyroidism, unspecified (principal)
CPT/HCPCS: 36415; 84443

== ENCOUNTER → 2022-11-04 12:06 | Outpatient (CLI) | payer SELFPAY ==
--- NOTE | 2022-11-04 12:09 | DI.US.S_ITS ---
ULTRASOUND OF LEFT BREAST: 11/04/2022 CLINICAL: Diffuse left breast pain. Comparison is made to exams dated: 06/25/2020 ultrasound, 11/04/2022 mammogram, 06/25/2020 mammogram, 08/20/2012 mammogram, 08/20/2012, and 12/15/2008 mammogram - . Color flow and real-time ultrasound of the left breast were performed. Botello scale images of the real-time examination were reviewed. There are multiple wider than tall various size masses with indistinct margins in the left axilla which correlate with areas of focal tenderness. These masses are isoechoic with faint surrounding increased echogenicity. IMPRESSION: PROBABLY BENIGN The multiple wider than tall various size masses resemble fat necrosis or possible inflammed lipomas and are probably benign. There are no abnormalities seen in the left breast to correspond with the area of clinical concern and palpable nodularities, however, clinical followup is recommended. A follow-up left mammogram and left ultrasound in 6 months is recommended to demonstrate stability. Findings and recommendations were conveyed to the patient during today's evaluation. This exam was interpreted at Station ID: [id number]. Electronically Signed By: Janusz Turner M.D. aty/:11/04/2022 14:09:48 letter sent: Followup Recommended Ultrasound BI-RADS: 3 Probably benign
--- NOTE | 2022-11-04 12:09 | DI.MG.S_ITS ---
BILATERAL DIGITAL DIAGNOSTIC MAMMOGRAM 3D/2D: 11/04/2022 CLINICAL: Pain/ swelling/fullness in the Left breast. Comparison is made to exams dated: 06/25/2020 mammogram, 08/20/2012 mammogram, and 12/15/2008 mammogram - [facility]. Both breasts are heterogeneously dense, which may obscure small masses (category c / 51-75% glandular tissue). No significant masses, calcifications, or other findings are seen in either breast. IMPRESSION: INCOMPLETE: NEEDS ADDITIONAL IMAGING EVALUATION There is no abnormality seen in the left breast to correspond with the area of clinical concern and pain in the upper outer quadrant, however, an ultrasound is recommended for further evaluation and is scheduled to immediately follow this examination. Based on the Tyrer Cuzick model (a risk assessment model) the patient's lifetime risk is 6.7% and her 10 year risk is 2.7%. According to the ACR, ACS, and NCCN guidelines, an annual breast MRI exam along with mammogram is recommended if the patient's lifetime risk is 20% or greater. This exam was interpreted at Station ID: [id number]. NOTE: For mammograms, a report in lay terms will be sent to the patient. Approximately 15% of breast malignancies will not be visualized mammographically. In the management of a palpable breast mass, a negative mammogram must not discourage biopsy of a clinically suspicious lesion. Electronically Signed By: Janusz Turner M.D. aty/:11/04/2022 12:46:01 ACR BI-RADS Category 0: Incomplete 3340F
== END ==
PROVIDERS: Family Provider Family Medicine; PCP Family Medicine; Referring Provider Physician Assistant; Visit Provider Physician Assistant
DX: N64.4 Mastodynia (principal); R92.2 Inconclusive mammogram; N63.20 Unspecified lump in the left breast, unspecified quadrant
CPT/HCPCS: 76642; 77066; G0279

== ENCOUNTER → 2023-07-28 10:02 | Outpatient (CLI) | payer OTHER, SELFPAY ==
[2023-07-28 10:32] LABS: Add Manual Diff / Slide Review NO; Basophils Absolute Auto 0 /uL (0-100); Basophils Percent Auto 0.3 % (0-2); Eosinophils Absolute Auto 100 /uL (0-450); Eosinophils Percent Auto 1.6 % (2-4); Hematocrit 43.2 % (36-46); Hemoglobin 14.3 g/dL (12.0-16.0); Lymphocytes Absolute Auto 1600 /uL (1100-4500); Lymphocytes Percent Auto 38.2 % (25-40); Mean Corpuscular HGB Conc 33.2 % (30-36); Mean Corpuscular Hemoglobin 30.3 PG (26-34); Mean Corpuscular Volume 91.3 fL (80-100); Monocytes Absolute Auto 500 /uL (0-900); Monocytes Percent Auto 12.9 % (3-14); Neutrophils Absolute Auto 2000 /uL (1500-7000); Platelet Count 168 X10^3/uL (150-400); Red Blood Cell Count 4.73 X10^6/uL (4.0-5.2); Red Cell Distribution Width 12.1 % (11.6-14.8); White Blood Cell Count 4.2 X10^3/uL (4.5-11.0)
[2023-07-28 10:50] LABS: Alanine Aminotransferase 19 IU/L (<35); Albumin 4.3 g/dL (3.5-5.0); Albumin Globulin Ratio 1.4 (1.0-2.8); Alkaline Phosphatase 56 U/L (38-126); Aspartate Aminotransferase 27 IU/L (14-36); Bilirubin Total 0.8 mg/dL (0.2-1.3); Blood Urea Nitrogen 15 mg/dL (7-17); Calcium 9.8 mg/dL (8.4-10.2); Carbon Dioxide 30 mmol/L (22-32); Chloride 101 mmol/L (98-107); Cholesterol 220 mg/dL (140-199); Estimated Glomerular Filt Rate > 60 mL/min (>60); Globulin 3.1 g/dL (1.7-4.1); Glucose 99 mg/dL (80-110); HDL Cholesterol 58 mg/dL (40-60); HEMOLYSIS < 15 (0-50); LDL Cholesterol Calculated 146 mg/dL (<100); Potassium 4.1 mmol/L (3.4-5.1); Sodium 137 mmol/L (137-145); Total Protein 7.4 g/dL (6.3-8.2); Triglycerides 81 mg/dL (35-150)
[2023-07-28 11:23] LABS: TSH w/ Reflex to FT4 0.82 uIU/mL (0.47-4.68)
[2023-07-28 11:38] LABS: Vitamin B12 288 pg/mL (239-931)
== END ==
PROVIDERS: Family Provider Family Medicine; PCP Family Medicine; Referring Provider Physician Assistant; Visit Provider Physician Assistant
DX: E03.9 Hypothyroidism, unspecified (principal); G25.81 Restless legs syndrome; R53.83 Other fatigue; I49.9 Cardiac arrhythmia, unspecified; Z13.220 Encounter for screening for lipoid disorders; Z13.6 Encounter for screening for cardiovascular disorders
CPT/HCPCS: 36415; 80053; 80061; 82607; 84443; 85025

== ENCOUNTER → 2023-08-07 11:47 | Outpatient (CLI) | payer OTHER, SELFPAY ==
--- NOTE | 2023-08-07 11:49 | DI.US.S_ITS ---
ULTRASOUND OF LEFT BREAST: 08/07/2023 CLINICAL: Diffuse left breast pain. F/u axillary nodes. Comparison is made to exams dated: 08/07/2023 mammogram, 11/04/2022 ultrasound, 11/04/2022 mammogram, 06/25/2020 ultrasound, and 06/25/2020 mammogram - [facility]. Color flow and real-time ultrasound of the left breast were performed. Botello scale images of the real-time examination were reviewed. Redemonstration of previously described multiple wider than tall various size masses with indistinct margins in the left axilla correlating with previous area of focal tenderness. These masses are isoechoic. These abnormalities are not significantly changed. IMPRESSION: PROBABLY BENIGN The multiple wider than tall various size masses resemble fat necrosis or lipomas and are probably benign. A follow-up bilateral mammogram and a left ultrasound in 12 months is recommended to document mcc stability. Findings and recommendations were conveyed to the patient during today's evaluation. This exam was interpreted at Station ID: [id number]. Electronically Signed By: Janusz Turner M.D. at/:08/07/2023 14:23:46 letter sent: Followup Recommended Ultrasound BI-RADS: 3 Probably benign
--- NOTE | 2023-08-07 11:49 | DI.MG.S_ITS ---
BILATERAL DIGITAL DIAGNOSTIC MAMMOGRAM 3D/2D: 08/07/2023 CLINICAL: Short term follow up of the left breast, due for bilateral imaging. Comparison is made to exams dated: 11/04/2022 ultrasound, 11/04/2022 mammogram, 06/25/2020 ultrasound, and 06/25/2020 mammogram - [facility]. Both breasts are heterogeneously dense, which may obscure small masses (category c / 51-75% glandular tissue). No significant masses, calcifications, or other findings are seen in either breast. IMPRESSION: INCOMPLETE: NEEDS ADDITIONAL IMAGING EVALUATION There is no abnormality seen in the left breast or in the left axilla to correspond with the area of clinical concern and palpable concern evaluated on the prior examination. There was a lipoma versus fat necrosis seen on the previous study near the left axilla. An ultrasound is recommended for further evaluation and is scheduled to immediately follow this examination. Based on the Tyrer Cuzick model (a risk assessment model) the patient's lifetime risk is 6.6% and her 10 year risk is 2.7%. According to the ACR, ACS, and NCCN guidelines, an annual breast MRI exam along with mammogram is recommended if the patient's lifetime risk is 20% or greater. This exam was interpreted at Station ID: [id number]. NOTE: For mammograms, a report in lay terms will be sent to the patient. Approximately 15% of breast malignancies will not be visualized mammographically. In the management of a palpable breast mass, a negative mammogram must not discourage biopsy of a clinically suspicious lesion. Electronically Signed By: Janusz Turner M.D. aty/:08/07/2023 13:55:16 ACR BI-RADS Category 0: Incomplete 3340F
== END ==
PROVIDERS: Family Provider Family Medicine; PCP Family Medicine; Referring Provider Physician Assistant; Visit Provider Physician Assistant
DX: R92.8 Other abnormal and inconclusive findings on diagnostic imaging of breast (principal); N63.32 Unspecified lump in axillary tail of the left breast; N64.4 Mastodynia; R92.333 Mammographic heterogeneous density, bilateral breasts
CPT/HCPCS: 76642; 77066; G0279

== ENCOUNTER → 2023-10-19 08:06 | Outpatient (CLI) | payer OTHER, SELFPAY ==
--- NOTE | 2023-10-19 08:08 | DI.RAD.S_ITS ---
PROCEDURE: XR CERVICAL SPINE 4V OR 5V INDICATIONS: neck pain TECHNIQUE: 6 views of the cervical spine acquired. COMPARISON: [facility], RG, CT CERVICAL SPINE, 04/02/2023, 20:07. FINDINGS: Bones: No fractures or dislocations to the T1 level. Loss of normal cervical spine lordosis. Multilevel disc space height loss. Small osteophytes. Oblique images demonstrate no bony foraminal stenoses. Soft tissues: No prevertebral soft tissue swelling. IMPRESSION: [id number] degenerative change in the cervical spine. Dictated by: Felipe Virgen M.D. on 10/19/2023 at 9:56 Approved by: Felipe Virgen M.D. on 10/19/2023 at 9:58
== END ==
PROVIDERS: Family Provider Family Medicine; PCP Family Medicine; Referring Provider Anesthesiology; Visit Provider Anesthesiology
DX: M47.812 Spondylosis without myelopathy or radiculopathy, cervical region (principal); M54.2 Cervicalgia
CPT/HCPCS: 72050

== ENCOUNTER 2023-10-21 16:14 | Emergency (ER) | payer OTHER, SELFPAY ==
[2023-10-21 16:18] VITALS: BP 135/79; PULSE 81; RESP 18; TEMP 36.7; O2SAT 99; BMI 25.6
--- NOTE | 2023-10-21 17:24 | ED_ITS ---
HPI - Fall <Tori Wild PA-C - Last Filed: 10/21/23 19:41> General Chief Complaint: Fall Stated Complaint: lt rib pain s/p fall Time Seen by Provider: 10/21/23 17:22 Source: patient Mode of arrival: Ambulatory History of Present Illness HPI Narrative: 63-year-old female who is not on blood thinners presents with concern for left- sided rib pain and left knee pain after she fell today in the afternoon. Kat ent states that she and family are cleaning out her mother's house who unexpectedly last week, she was carrying a dish and walking when she stepped over a board and as she did so lost her balance and fell. She states that her arm was up in the air on the left and she landed with all of the brunt of her weight on her left ribs on her side. Somehow she also injured her left knee at the same time although she is unsure if she twisted it or hit it on the ground. She states she felt and heard a popping sensation associated with pain in her left ribs and it was only later that she realized her knee was painful. She says she has been able to breathe just fine but does have some increased pain on her left side with rotation forward movement or sometimes with deep breaths. She has been walking okay on her left knee but states it is a little painful and a little swollen. She denies hitting her head, loss of consciousness neck pain, numbness or tingling of extremities or any other symptoms or concerns. Related Data Home Medications Medication Instructions Recorded Confirmed topiramate 50 mg tablet 50 mg PO BEDTIME 10/19/23 10/19/23 Previous Rx's Medication Instructions Recorded furosemide 40 mg tablet See Rx Instructions .Route 05/29/22 .COMPLEX #30 tabs levothyroxine 100 mcg tablet 100 mcg PO DAILY #90 tabs 08/10/23 tramadol 50 mg tablet See Rx Instructions .Route 08/25/23 .COMPLEX #60 tabs trazodone 100 mg tablet See Rx Instructions .Route 09/14/23 .COMPLEX #30 tabs lidocaine 5 % topical ointment 1 applic topical TID PRN pain #50 10/21/23 grams Allergies Allergy/AdvReac Type Severity Reaction Status Date / Time adhesive Allergy Mild ALLERGIC Verified 10/19/23 08:44 TO TAPE pramipexole AdvReac Intermediate Diarrhea,vomiting, Verified 10/19/23 08:44 diaphoresis Gabapentin AdvReac Intermediate Didn't Uncoded 10/19/23 08:44 feel good Review of Systems <Tori Wild PA-C - Last Filed: 10/21/23 19:41> Review of Systems Narrative: See HPI Patient History <Tori Wild PA-C - Last Filed: 10/21/23 19:41> Medical History Family history of Parkinson's disease Myofascial pain Lumbar spondylosis Cervical spondylosis Chronic neck pain PVC (premature ventricular contraction) Chest pain Surgical History Status post laparotomy Status post delivery Status post hysterectomy with oophorectomy Social History marital status: Smoking Status: Former smoker alcohol intake: never substance use type: does not use Smoking Status: Former smoker alcohol intake frequency: holidays/special occasions only Substance Use Type: does not use Exam <Tori Wild PA-C - Last Filed: 10/21/23 19:41> Narrative Exam Narrative: GENERAL: [63] year old patient appears stated age. Well-developed patient, in mild distress. HEAD: Atraumatic. Normocephalic. EYES: Pupils equal round and reactive. Extraocular motions intact. No scleral icterus. No injection or drainage. ENT: Nose without bleeding, purulent drainage. Airway patent. NECK: Trachea midline. Non tender CARDIOVASCULAR: Regular rate and rhythm without murmurs, gallops, or rubs. RESPIRATORY: Clear to auscultation. Breath sounds equal bilaterally. No wheezes, rales, or rhonchi. GASTROINTESTINAL: Abdomen soft, non-tender, nondistended. EXTREMITIES: The left knee is very slightly swollen as compared to the right, patient has tenderness that is mild at the medial joint line, she also has tenderness at the superior lateral aspect of the patella over the distal quadriceps/quadriceps tendon. Negative posterior drawer and anterior drawer. Range of motion is intact and with minimal pain. Patient ambulates without limp. No other edema or joint tenderness. BACK/thorax: There is no midline spinous process tenderness deformity or step- off. Patient has tenderness with palpation over the ribs and intercostal at proximally T 7-10 level located laterally at the mid axillary line and just anterior to this. Patient also has some muscle tightness and tenderness over the rhomboids and paraspinal muscles of the left spine of the thorax. There is no bruising noted. There is no abdominal tenderness--sternum is nontender with palpation. Otherwise Nontender without deformity or crepitance. No flank tenderness. NEURO: AOx3. SKIN: No rash or erythema of visible areas Initial Vital Signs Initial Vital Signs: Vital Signs Temperature 98.1 F 10/21/23 16:18 Pulse Rate 81 10/21/23 16:18 Respiratory Rate 18 10/21/23 16:18 Blood Pressure 135/79 10/21/23 16:18 Pulse Oximetry 99 10/21/23 16:18 Oxygen Delivery Method Room Air 10/21/23 16:18 <Cris Fitch MD - Last Filed: 10/23/23 20:35> Initial Vital Signs Initial Vital Signs: Vital Signs Temperature 98.1 F 10/21/23 16:18 Pulse Rate 81 10/21/23 16:18 Respiratory Rate 18 10/21/23 16:18 Blood Pressure 135/79 10/21/23 16:18 Pulse Oximetry 99 10/21/23 16:18 Oxygen Delivery Method Room Air 10/21/23 16:18 Course <Tori Wild PA-C - Last Filed: 10/21/23 19:41> Orders Ordered: ED Orders 10/21/23 17:23 XR knee LT 3V Stat XR ribs LT min 3V w CXR1V Stat Vital Signs Vital signs: Vital Signs - 8 hr 10/21/23 16:18 10/21/23 18:55 Temperature 98.1 F Pulse Rate 81 68 Respiratory Rate 18 18 Blood Pressure 135/79 115/68 Pulse Oximetry 99 100 Oxygen Delivery Method Room Air Room Air <Cris Fitch MD - Last Filed: 10/23/23 20:35> Orders Ordered: ED Orders 10/21/23 17:23 XR knee LT 3V Stat XR ribs LT min 3V w CXR1V Stat Vital Signs Vital signs: Vital Signs - 8 hr 10/21/23 16:18 10/21/23 18:55 Temperature 98.1 F Pulse Rate 81 68 Respiratory Rate 18 18 Blood Pressure 135/79 115/68 Pulse Oximetry 99 100 Oxygen Delivery Method Room Air Room Air MDM - Fall <Tori Wild PA-C - Last Filed: 10/21/23 19:41> Differential Diagnosis Differential diagnosis: Likely other (Sprain/strain knee left, intercostal muscle strain, rib fracture) Medical Records Attestation: I reviewed the patient's medical records. Imaging Data Extremity x-ray #1: My Impression: Agree with Radiology interpretation Radiologist's Impression: [address] [address] XRay Report Signed Patient: Brittni Resendiz MR#: [id number] : 1960 Acct:[id number] Age/Sex: 63 / F Date of Service: 10/21/23 Loc: ED Accession Number: [id number] Procedure: XR knee LT 3V Ordering Provider: Tori Wild P.A-C PROCEDURE: XR KNEE LT 3V INDICATIONS: fall, L knee pain TECHNIQUE: 3 views of the knee were acquired. COMPARISON: None. FINDINGS: Bones: No fractures or dislocations. No suspicious bony lesions. Mild to moderate tricompartmental arthritic change. Soft tissues: Mild joint effusion. No suspicious soft tissue calcifications. IMPRESSION: No visualized acute fracture or dislocation. However, if clinical concern and/or pain persist, short interval imaging followup in 7-10 days is recommended, as occult injury cannot be definitively excluded. Dictated by: Carolina Hobbs M.D. on 10/21/2023 at 17:55 Approved by: Carolina Hobbs M.D. on 10/21/2023 at 17:55 rib series/CXR: My Impression: Agree with Radiology interpretation Radiologist's Impression: [address] [address] XRay Report Signed Patient: Brittni Resendiz MR#: [id number] : 1960 Acct:[id number] Age/Sex: 63 / F Date of Service: 10/21/23 Loc: ED Accession Number: [id number] Procedure: XR ribs LT min 3V w CXR1V Ordering Provider: Tori Wild P.A-C PROCEDURE: XR RIBS LT MIN 3V W CXR1V INDICATIONS: fall, L rib pain TECHNIQUE: 3 views of the ribs were acquired, along with a single view chest. COMPARISON: None. FINDINGS: Surgical changes and devices: None. Bones and chest wall: No fractures or dislocations. No suspicious bony lesions. Overlying soft tissues appear unremarkable. Lungs and pleura: No pleural effusions or pneumothorax. Lungs appear clear. Mediastinum: Mediastinal contours appear normal. Heart size is normal. IMPRESSION: No visualized acute fracture or dislocation. However, if clinical concern and/or pain persist, short interval imaging followup in 7-10 days is recommended, as occult injury cannot be definitively excluded. Dictated by: Carolina Hobbs M.D. on 10/21/2023 at 17:54 Approved by: Carolina Hobbs M.D. on 10/21/2023 at 17:55 [facility] Narrative Medical decision making narrative: 63-year-old female with chronic low back pain presents with concern for a fall today without head injury or LOC affecting her left side and left knee. Imaging obtained does not show evidence of pneumothorax or rib fracture although certainly subtle rib fracture can not be ruled out with same-day x-rays. X-ray of the knee does show a small joint effusion. Knee exam is consistent with a strain, possibly sprain discussed options with the patient and feel crutches will be difficult for her given her left side/rib pain from her fall today, she is advised to use an Hasmukh wrap for compression and tried to keep her left knee/leg elevated as much as possible and stay off of it as much as possible for at least the next 2-3 days and then progressively increase activity as tolerat ed. Patient declines muscle relaxer as she states she has this at home, prescription today for topical lidocaine for rib/side pain. Based on her vitals, exam and history I have low suspicion for internal bleeding or organ damage and advanced imaging and labs are not obtained today. Patient will take OTC NSAIDs as needed for pain in addition to lidocaine. Follow up with Orthopedics if she has not improving otherwise see her PCP. Return precautions provided, follow-up plan discussed, all questions answered. Discharge Plan Departure Patient Disposition: Home Clinical Impression: Intercostal muscle strain Qualifiers: Encounter type: initial encounter Qualified Code(s): S29.011A - Strain of muscle and tendon of front wall of thorax, initial encounter Fall Qualifiers: Encounter type: initial encounter Qualified Code(s): W19.XXXA - Unspecified fall, initial encounter Strain of left knee Qualifiers: Encounter type: initial encounter Qualified Code(s): S86.912A - Strain of unspecified muscle(s) and tendon(s) at lower leg level, left leg, initial encounter Activity Restrictions/Additional Instructions: *You have been diagnosed with [left knee strain, intercostal muscle strain] *What to do: *Please continue to take your regular medications as directed. [ 1] New medication prescriptions sent to your pharmacy: [Lidocaine topical] [ ] New medication written as a paper prescription [ ] No new medications given *Please follow up with your primary care provider in 2-3 days, call for an appointment. Let them know you were seen in the Emergency Department and that we ask that you be seen in follow up. We will electronically transmit a record of today's note if your PCP is in our system. We x-rayed your chest and x-rays specific to look at your ribs on the left side. We do not see evidence of a fracture although as we discussed occasionally a rib fracture can not be seen on an initial x-ray after a fall if it is a very subtle rib fracture. Certainly it is possible your symptoms are entirely due to muscle strain from the muscles in between your ribs and possibly of your upper abdominal wall. I encourage you to stay on top of NSAIDs I understand that you do not like to take acetaminophen/Tylenol that is okay, but do stay on top of medications to help with pain and inflammation to ensure that your taking good deep breaths as UR at somewhat increased risk of developing a pneumonia if you are not taking deep breaths because you are having pain on her side. Regarding your knee your x-ray did show a small fluid effusion which is not uncommon when you have knee trauma/injury. Given your left-sided rib pain I think crutches are not a great solution for you right now and you have been able to walk okay on your left leg, I would recommend that you use the Hasmukh wrap we supplied today to provide some compression and as a gentle reminder to not bend your knee too much or walk on it too much. Try to stay off of it for the next few days as much as possible and elevate your leg when your at rest. If you have worsening pain or new symptoms or develop shortness of breath or other symptoms of concern please make sure you seek re-evaluation. You can follow up with your primary care provider, or you may want to consider seeing orthopedics if you feel like you are having persistent knee pain. I prescribed lidocaine for you, it sounds like you have muscle relaxers at home and declined a prescription for these. *If you do not have a primary care provider please contact the [facility] Resource line at [phone]. They will ask some questions about your medical history and help get you set up with a doctor in the community. *Return to Emergency Department if you should have any new, worsening or concerning symptoms, such as [fever greater than 101 F, shaking chills, worsening pain, persistent vomiting or other bothersome symptoms] Prescriptions: New lidocaine 5 % ointment 1 applic topical TID PRN (Reason: pain) Qty: 50 1RF No Action furosemide 40 mg tablet See Rx Instructions .ROUTE .COMPLEX Qty: 30 0RF Dose Instruction: TAKE ONE TABLET BY MOUTH DAILY NEEDED FOR EDEMA Rx Instructions: TAKE ONE TABLET BY MOUTH DAILY NEEDED FOR EDEMA levothyroxine 100 mcg tablet 100 mcg PO DAILY Qty: 90 3RF tramadol 50 mg tablet See Rx Instructions .ROUTE .COMPLEX Qty: 60 0RF Dose Instruction: TAKE ONE TABLET BY MOUTH EVERY 6 HOURS NEEDED FOR PAIN Rx Instructions: TAKE ONE TABLET BY MOUTH EVERY 6 HOURS NEEDED FOR PAIN trazodone 100 mg tablet See Rx Instructions .ROUTE .COMPLEX Qty: 30 5RF Dose Instruction: TAKE ONE TABLET BY MOUTH AT BEDTIME Rx Instructions: TAKE ONE TABLET BY MOUTH AT BEDTIME topiramate 50 mg tablet 50 mg PO BEDTIME Referrals: Chris Sy MD [Primary Care Provider] - Stand Alone Forms: Patient Portal/API ED Sign-out <Cris Fitch MD - Last Filed: 10/23/23 20:35> Cosign ED Attending Cosignature Attestation: I did not see this patient. I was available all times for consultation.
[2023-10-21 18:55] VITALS: BP 115/68; PULSE 68; RESP 18; O2SAT 100
== END 2023-10-21 19:01 | disposition home or self-care (01) ==
PROVIDERS: Emergency Provider Student in an Organized Health Care Education/Training Program; Family Provider Family Medicine; PCP Family Medicine
DX: S29.011A Strain of muscle and tendon of front wall of thorax, initial encounter (principal); S86.912A Strain of unspecified muscle(s) and tendon(s) at lower leg level, left leg, initial encounter; W18.30XA Fall on same level, unspecified, initial encounter
CPT/HCPCS: 71101; 73562; 99281; 99283

== ENCOUNTER → 2024-06-13 10:36 | Outpatient (CLI) | payer OTHER, SELFPAY ==
[2024-06-13 11:23] LABS: Add Manual Diff / Slide Review NO; Basophils Absolute Auto 0 /uL (0-100); Basophils Percent Auto 0.7 % (0-2); Eosinophils Absolute Auto 100 /uL (0-450); Hematocrit 42.8 % (36-46); Hemoglobin 14.1 g/dL (12.0-16.0); Lymphocytes Absolute Auto 1700 /uL (1100-4500); Lymphocytes Percent Auto 43.7 % (25-40); Mean Corpuscular Hemoglobin 30.5 PG (26-34); Mean Corpuscular Volume 92.5 fL (80-100); Monocytes Absolute Auto 500 /uL (0-900); Monocytes Percent Auto 14.2 % (3-14); Neutrophils Absolute Auto 1500 /uL (1500-7000); Neutrophils Percent Auto 39.4 % (50-75); Platelet Count 162 X10^3/uL (150-400); Red Blood Cell Count 4.63 X10^6/uL (4.0-5.2); Red Cell Distribution Width 13.2 % (11.6-14.8); White Blood Cell Count 3.8 X10^3/uL (4.5-11.0)
[2024-06-13 11:49] LABS: Alanine Aminotransferase 18 IU/L (<35); Albumin 4.1 g/dL (3.5-5.0); Albumin Globulin Ratio 1.6 (1.0-2.8); Alkaline Phosphatase 56 U/L (38-126); Aspartate Aminotransferase 30 IU/L (14-36); BUN Creatinine Ratio 13.8 (6-22); Bilirubin Total 0.7 mg/dL (0.2-1.3); Blood Urea Nitrogen 12 mg/dL (7-17); Calcium 9.6 mg/dL (8.4-10.2); Carbon Dioxide 28 mmol/L (22-32); Chloride 102 mmol/L (98-107); Estimated Glomerular Filt Rate > 60 mL/min (>60); Globulin 2.5 g/dL (1.7-4.1); Glucose 83 mg/dL (80-110); HEMOLYSIS < 15 (0-50); Potassium 3.9 mmol/L (3.4-5.1); Sodium 135 mmol/L (137-145); Total Protein 6.6 g/dL (6.3-8.2)
[2024-06-13 12:20] LABS: TSH w/ Reflex to FT4 0.39 uIU/mL (0.47-4.68)
[2024-06-13 12:39] LABS: Vitamin B12 414 pg/mL (239-931)
== END ==
PROVIDERS: Family Provider Family Medicine; PCP Family Medicine; Referring Provider Physician Assistant; Visit Provider Physician Assistant
DX: E03.9 Hypothyroidism, unspecified (principal); R53.83 Other fatigue; E53.8 Deficiency of other specified B group vitamins
CPT/HCPCS: 36415; 80053; 82607; 84439; 84443; 85025

== ENCOUNTER → 2024-08-24 07:34 | Outpatient (CLI) | payer OTHER, SELFPAY ==
--- NOTE | 2024-08-24 | DI.US.S_ITS ---
ULTRASOUND OF LEFT AXILLA: 08/24/2024 CLINICAL: 12 mo f/u axillary masses. Comparison exams: Left breast ultrasound 08/07/2023, 11/04/2022 Color flow and real-time ultrasound of the left axilla were performed. Botello scale images of the real-time examination were reviewed. There is redemonstration of multiple isoechoic areas in the left axilla which corresponds to area of prior clinical tenderness. These findings have not significantly changed since prior ultrasound 11/04/2022. IMPRESSION: BENIGN Left axillary isoechoic areas corresponding to prior area of clinical concern which may represent lipomas are stable since October 2022. Given these findings have demonstrated near 2 year stability, it is consistent with a benign process. No mammographic or sonographic evidence of malignancy. A 1 year screening mammogram is recommended. Clinical follow-up is also recommended, and further management of palpable abnormalities or other focal signs or symptoms should be based on the results of clinical evaluation. If palpable abnormality or other concerning symptom persists or progresses, further clinical evaluation should be considered. Findings and recommendations were conveyed to the patient during today's evaluation. This exam was interpreted at Station ID: [id number]. Electronically Signed By: Bri Gonzalez M.D., Ph.D. eb/:08/25/2024 11:56:53 letter sent: Normal Exam ACR BI-RADS Category 2: Benign
--- NOTE | 2024-08-24 07:35 | DI.MG.S_ITS ---
BILATERAL DIGITAL DIAGNOSTIC MAMMOGRAM 3D/2D: 08/24/2024 CLINICAL: Short term follow up of the left breast, due for bilateral imaging. Comparison is made to exams dated: 08/07/2023 mammogram, 11/04/2022 mammogram, and 06/25/2020 mammogram - [facility]. The breasts are heterogeneously dense, which may obscure small masses (category c / 51-75% glandular tissue). No significant masses, calcifications, or other findings are seen in either breast. IMPRESSION: INCOMPLETE: NEED ADDITIONAL IMAGING EVALUATION There is no mammographic abnormality seen in the left axilla to correspond with the area of clinical concern. An ultrasound is recommended for further evaluation and is scheduled to immediately follow this examination. Based on the Tyrer Cuzick model (a risk assessment model) the patient's lifetime risk is 6.4% and her 10 year risk is 2.7%. According to the ACR, ACS, and NCCN guidelines, an annual breast MRI exam along with mammogram is recommended if the patient's lifetime risk is 20% or greater. This exam was interpreted at Station ID: [id number]. NOTE: For mammograms, a report in lay terms will be sent to the patient. Approximately 15% of breast malignancies will not be visualized mammographically. In the management of a palpable breast mass, a negative mammogram must not discourage biopsy of a clinically suspicious lesion. Electronically Signed By: Bri Gonzalez M.D., Ph.D. eb/:08/24/2024 08:50:58 letter sent: Additional Imaging Needed ACR BI-RADS Category 0: Incomplete: Need Additional Imaging Evaluation
== END ==
PROVIDERS: Family Provider Family Medicine; PCP Family Medicine; Referring Provider Physician Assistant; Visit Provider Physician Assistant
DX: R92.8 Other abnormal and inconclusive findings on diagnostic imaging of breast (principal); R92.333 Mammographic heterogeneous density, bilateral breasts
CPT/HCPCS: 76882; 77066; G0279

== ENCOUNTER → 2024-10-20 11:43 | Outpatient (CLI) | payer OTHER, SELFPAY ==
[2024-10-20 13:08] LABS: Add Manual Diff / Slide Review NO; Basophils Absolute Auto 0 /uL (0-100); Basophils Percent Auto 0.6 % (0-2); Eosinophils Absolute Auto 0 /uL (0-450); Eosinophils Percent Auto 0.8 % (2-4); Hematocrit 40.2 % (36-46); Hemoglobin 13.5 g/dL (12.0-16.0); Lymphocytes Absolute Auto 1400 /uL (1100-4500); Lymphocytes Percent Auto 37.3 % (25-40); Mean Corpuscular HGB Conc 33.7 % (30-36); Mean Corpuscular Hemoglobin 31.3 PG (26-34); Mean Corpuscular Volume 92.8 fL (80-100); Monocytes Absolute Auto 500 /uL (0-900); Monocytes Percent Auto 12.6 % (3-14); Neutrophils Absolute Auto 1800 /uL (1500-7000); Neutrophils Percent Auto 48.7 % (50-75); Platelet Count 159 X10^3/uL (150-400); Red Blood Cell Count 4.33 X10^6/uL (4.0-5.2); Red Cell Distribution Width 13.2 % (11.6-14.8); White Blood Cell Count 3.7 X10^3/uL (4.5-11.0)
[2024-10-20 13:32] LABS: Alanine Aminotransferase 18 IU/L (<35); Albumin 4.3 g/dL (3.5-5.0); Albumin Globulin Ratio 1.8 (1.0-2.8); Alkaline Phosphatase 53 U/L (38-126); Amylase 72 U/L (30-110); Aspartate Aminotransferase 28 IU/L (14-36); BUN Creatinine Ratio 17.7 (6-22); Bilirubin Total 0.7 mg/dL (0.2-1.3); Blood Urea Nitrogen 14 mg/dL (7-17); Calcium 9.9 mg/dL (8.4-10.2); Carbon Dioxide 26 mmol/L (22-32); Chloride 103 mmol/L (98-107); Estimated Glomerular Filt Rate > 60 mL/min (>60); Globulin 2.4 g/dL (1.7-4.1); Glucose 105 mg/dL (80-110); HEMOLYSIS < 15 (0-50); Lipase 135 U/L (23-300); Sodium 137 mmol/L (137-145); Total Protein 6.7 g/dL (6.3-8.2)
== END ==
PROVIDERS: Family Provider Family Medicine; PCP Family Medicine; Referring Provider Physician Assistant; Visit Provider Physician Assistant
DX: R10.10 Upper abdominal pain, unspecified (principal); Q45.1 Annular pancreas
CPT/HCPCS: 36415; 80053; 82150; 83690; 85025

== ENCOUNTER → 2024-11-02 08:41 | Outpatient (CLI) | payer OTHER, SELFPAY ==
--- NOTE | 2024-11-02 08:41 | DI.CT.S_ITS ---
PROCEDURE: CT ABDOMEN PELVIS W CON INDICATIONS: Persistent upper abd pain x 4 mos w/nausea TECHNIQUE: After the administration of intravenous contrast, axial sections acquired from the lung bases to the pubic symphysis. Coronal and sagittal reformats were performed. For radiation dose reduction, the following was used: automated exposure control, adjustment of mA and/or kV according to patient size. COMPARISON: [facility], CT, CT ABDOMEN PELVIS W CON, 09/17/2021, 19:56. FINDINGS: Image quality: Diagnostic. Lower Chest: No significant findings. ABDOMEN: Liver: No solid mass. Stable hepatic dome hemangioma. Gallbladder: No radiopaque gallstones or wall thickening. Biliary ducts: No biliary dilation. Pancreas: No ductal dilation. Redemonstration of congenital variant annular pancreas. Mild narrowing at the junction of the 1st and 2nd portions of duodenum. Spleen: Size is within normal limits. Adrenal Glands: No adrenal nodules. Kidneys and Ureters: No hydronephrosis. Redemonstration of bilateral extrarenal pelvis. No solid mass. No complex renal cystic lesion which requires follow up. Stomach and Bowel: Normal colonic caliber, without significant wall thickening. Large fecal burden seen throughout the colon but most pronounced in the ascending colon, transverse colon, and proximal descending colon. Mild prominence of the 1st and 2nd portions of the duodenum as well as mild gastric distension. Prior appendectomy. No evidence for small bowel obstruction or associated inflammatory changes. Peritoneum: No abnormal intraperitoneal fluid. No free air. Ventral Wall: No significant ventral hernia. Abdominal Nodes: No retroperitoneal or mesenteric adenopathy by size criteria. Vessels: Aorta and inferior vena cava are normal in size. PELVIS: Pelvic Organs: Unremarkable. Bladder: No bladder wall thickening, accounting for underdistention. Pelvic Nodes: No enlarged lymph nodes. Miscellaneous: No inguinal hernias are seen. Bones: No aggressive osseous abnormality. Visualized osseous structures appear intact without acute fracture or focal destructive lesion. No acute compression fractures of the imaged spine. IMPRESSION: 1. Large fecal burden visualized within the ascending colon, transverse colon, and proximal descending colon. Findings may be related to constipation. No evidence for small bowel obstruction or distal bowel obstruction. 2. Redemonstration of congenital variant annular pancreas with narrowing of the duodenum at the junction of the 1st and 2nd portions with mild gastric distension. No evidence for high-grade obstruction. 3. Stable appearance of right hepatic dome hemangioma. Other chronic findings as above. Dictated by: Janusz Turner M.D. on 11/02/2024 at 22:42 Approved by: Janusz Turner M.D. on 11/02/2024 at 22:56
== END ==
LOC: CT 08:41
PROVIDERS: Family Provider Family Medicine; PCP Family Medicine; Referring Provider Physician Assistant; Visit Provider Physician Assistant
DX: Q45.1 Annular pancreas (principal); R10.10 Upper abdominal pain, unspecified; D18.03 Hemangioma of intra-abdominal structures
CPT/HCPCS: 74177; Q9967

== ENCOUNTER → 2025-04-03 10:36 | Outpatient (CLI) | payer OTHER, SELFPAY ==
[2025-04-03 13:36] LABS: TSH w/ Reflex to FT4 1.55 uIU/mL (0.47-4.68)
== END ==
PROVIDERS: Family Provider Family Medicine; PCP Family Medicine; Referring Provider Family Medicine; Visit Provider Family Medicine
DX: E03.9 Hypothyroidism, unspecified (principal)
CPT/HCPCS: 36415; 84443